=== PATIENT | male | born 1930 | race Caucasian/White ===

== ENCOUNTER 2017-02-11 15:46 | Emergency (ER) | payer MEDICARE, BC ==
--- NOTE | 2017-02-11 17:23 | RAD ---
LEFT RIBS: 02/11/17 Three views. HISTORY: Fell with injury to left ribs. No evidence of left rib fracture identified. IMPRESSION: No evidence of left rib fracture. POS: [facility]
== END 2017-02-11 17:12 | disposition home or self-care (01) ==
LOC: SCSER 15:46
DX: S20.212A Contusion of left front wall of thorax, initial encounter (principal); E78.5 Hyperlipidemia, unspecified; E11.40 Type 2 diabetes mellitus with diabetic neuropathy, unspecified; I25.2 Old myocardial infarction; K21.9 Gastro-esophageal reflux disease without esophagitis; I10 Essential (primary) hypertension; W01.0XXA Fall on same level from slipping, tripping and stumbling without subsequent striking against object, initial encounter
CPT/HCPCS: 93005

== ENCOUNTER 2020-08-01 14:27 | Outpatient (CLI) | payer MEDICARE, BC | END 2020-08-01 14:28 | disposition home or self-care (01) | LOC: BICRAD 14:27 | PROVIDERS: ATTEND Family Medicine | DX: M53.3 Sacrococcygeal disorders, not elsewhere classified (principal); M47.818 Spondylosis without myelopathy or radiculopathy, sacral and sacrococcygeal region | CPT/HCPCS: 72202 ==

== ENCOUNTER 2020-08-07 10:29 | Inpatient (IN) | payer MEDICARE, BC ==
[~2020-08-07 10:29] MED LIST: Iopamidol-370 76% 500 ML 1 ML ONE
[2020-08-07] MEDS ORDERED: Ondansetron PF 4 MG/2 ML Vial ONE (11:15)
[2020-08-07] MEDS ORDERED: Pantoprazole 40 MG VIAL ONE ×2 (11:15→11:28)
[2020-08-07 11:33] LABS: #Lymphocytes 0.9 thou/uL (1.20-3.40); #Monocytes 0.9 thou/uL (0.11-0.59); #Neutrophils 8.2 thou/uL (1.40-6.50); %Basophils 0.2 % (0.0-1.0); %Eosinophils 0.1 % (0.0-10.0); %Lymphocytes 9.2 % (21.0-51.0); %Monocytes 8.6 % (0.0-10.0); %Neutrophils 81.9 % (42.0-75.0); Hemoglobin 13.7 g/dL (14.0-18.0); Mean Corpuscular HGB CONC 33.5 g/dL (32.0-36.0); Mean Corpuscular Hemoglobin 36.1 pg (27.0-31.0); Mean Platelet Volume 6.9 fL (7.4-10.4); Platelet Count 211 thou/uL (130-400); RBC Distribution Width 12.1 % (11.5-14.5); Red Blood Cell (RBC) Count 3.79 mill/uL (4.70-6.10)
[2020-08-07 11:45] LABS: MDiff Complete? YES; Macrocytosis SLIGHT = 6-15 cells (100X) (0-5/hpf); Platelet Morphology Comment Appears Adequate
[2020-08-07 11:58] LABS: ALT (SGPT) 17 U/L (8-55); AST (SGOT) 19 U/L (5-34); Albumin 4.2 g/dL (3.4-4.8); Alkaline Phosphatase 50 U/L (40-110); Anion Gap 12 mmol/L (10-20); BUN (Urea Nitrogen) 21 mg/dL (8.4-25.7); Bilirubin, Total 0.8 mg/dL (0.2-1.2); Calc. Creatinine Clearance 0 mL/min (70-130); Calcium 9.5 mg/dL (7.8-10.44); Carbon Dioxide 27 mmol/L (23-31); Chloride 104 mmol/L (98-107); Globulin 2.5 g/dL (2.4-3.5); Glucose 121 mg/dL (83-110); Lipase 7 U/L (8-78); Potassium 4.1 mmol/L (3.5-5.1); Protein, Total 6.7 g/dL (5.8-8.1); Sodium 139 mmol/L (136-145)
[2020-08-07] MEDS ORDERED: Calcium Carbonate 500 MG ChewTAB PO PRN (12:56)
[2020-08-07] MEDS ORDERED: Ondansetron PF 4 MG/2 ML Vial IVP PRN (12:56)
[2020-08-07] MEDS ORDERED: Ondansetron ODT 4 MG TAB PO PRN (12:56)
[2020-08-07] MEDS ORDERED: Acetaminophen 650 MG Suppository PR PRN (13:00)
[2020-08-07] MEDS ORDERED: Pantoprazole 80 MG in Sodium Chloride 0.9% 100 ML IVPB SCH (13:15)
[2020-08-07 13:26] LABS: Iron 61 ug/dL (65-175); Iron Binding Capacity, Total 354 mcg/dL (261-462); Magnesium 2.1 mg/dL (1.6-2.6); Phosphorus 2.3 mg/dL (2.3-4.7)
[2020-08-07] MEDS ORDERED: Benzocaine 20% Spray 60 ML CAN ONE (13:37)
[2020-08-07] MEDS ORDERED: Morphine 2 MG/ML VIAL SLOW IVP PRN (13:43)
[2020-08-07] MEDS ORDERED: traMADol HCl 50 MG TAB PO PRN (14:48)
[2020-08-07] MEDS ORDERED: Acetaminophen 325 MG TAB PO PRN (14:49)
[2020-08-07] MEDS ORDERED: Labetalol HCl 100 MG/20 ML VIAL SLOW IVP PRN (14:50)
[2020-08-07] MEDS ORDERED: Carbidopa/Levodopa 25-100 mg Tablet PO SCH (15:00)
[2020-08-07 15:31] VITALS: BMI 27.2
[2020-08-07] MEDS: Sodium Chloride 0.9% 1,000 ML IV SCH ×2 (15:35→21:27)
[2020-08-07] MEDS: Carbidopa/Levodopa 25-100 mg Tablet PO SCH ×2 (16:48→21:27)
[2020-08-07 18:09] LABS: Hemoglobin 13.3 g/dL (14.0-18.0); Platelet Count 180 thou/uL (130-400)
[2020-08-07] MEDS: Metoprolol Tartrate 5 MG/5 ML VIAL IVP SCH (21:24)
[2020-08-07] MEDS: Nitroglycerin 2% Ointment 1 INCH/1 GM Packet TOP SCH (21:27)
[2020-08-07 21:58] LABS: SARS-CoV-2 IgG Ab Non-Reactive (NonReactive); SARS-CoV-2 IgG Index 0.02 S/CO (< 1.40)
[2020-08-08] MEDS ORDERED: Metoprolol Tartrate 5 MG/5 ML VIAL ONE (00:21)
[2020-08-08] MEDS: Metoprolol Tartrate 5 MG/5 ML VIAL IVP SCH ×5 (00:26→23:13)
[2020-08-08] MEDS: Sodium Chloride 0.9% 1,000 ML IV SCH ×4 (04:45→23:14)
[2020-08-08] MEDS: Nitroglycerin 2% Ointment 1 INCH/1 GM Packet TOP SCH ×3 (06:29→21:08)
[2020-08-08] MEDS ORDERED: MD-Gastroview 120 ML BOT ONE (10:11)
[2020-08-08] MEDS ORDERED: Ondansetron PF 4 MG/2 ML Vial IVP PRN (12:11)
[2020-08-08] MEDS ORDERED: Acetaminophen 650 MG Suppository PR PRN (12:13)
[2020-08-08] MEDS ORDERED: Labetalol HCl 100 MG/20 ML VIAL SLOW IVP PRN (12:13)
[2020-08-08] MEDS ORDERED: Ondansetron ODT 4 MG TAB PO PRN (12:15)
[2020-08-08] MEDS ORDERED: Pantoprazole 40 MG VIAL IVP SCH ×3 (12:15→21:00)
[2020-08-08] MEDS: Carbidopa/Levodopa 25-100 mg Tablet PO SCH ×3 (12:39→21:06)
[2020-08-08 14:32] LABS: Anion Gap 13 mmol/L (10-20); BUN (Urea Nitrogen) 22 mg/dL (8.4-25.7); Calc. Creatinine Clearance 66 mL/min (70-130); Calcium 9.3 mg/dL (7.8-10.44); Carbon Dioxide 22 mmol/L (23-31); Chloride 113 mmol/L (98-107); Glucose 99 mg/dL (83-110); Potassium 3.8 mmol/L (3.5-5.1); Sodium 144 mmol/L (136-145)
[2020-08-08] MEDS ORDERED: Nitroglycerin 4.9 GM Bottle SL PRN (14:41)
[2020-08-08] MEDS ORDERED: Ipratropium Bromide 0.06% Nasal Inhaler 15ml EA NARE PRN (14:41)
[2020-08-08] MEDS ORDERED: Carbidopa/Levodopa 25-100 mg Tablet PO SCH (15:00)
[2020-08-08] MEDS ORDERED: Montelukast Sodium 10 mg Tablet PO SCH (15:00)
[2020-08-08] MEDS ORDERED: Acetaminophen 500 MG TAB PO PRN (15:42)
[2020-08-08] MEDS ORDERED: Nystatin Powder 15 GM BOT TOP PRN (17:38)
[2020-08-08] MEDS: Calcium Carbonate 600 MG TAB PO SCH (21:06)
[2020-08-08] MEDS: Aspirin Chewable 81 MG TAB PO SCH (21:06)
[2020-08-08] MEDS: Atorvastatin Calcium 10 MG TAB PO SCH (21:06)
[2020-08-08] MEDS: Gabapentin 400 MG CAP PO SCH (21:06)
[2020-08-08] MEDS: Potassium Chloride 10 MEQ TAB PO SCH (21:06)
[2020-08-08] MEDS: traMADol HCl 50 MG TAB PO SCH (21:07)
[2020-08-09 04:28] LABS: Hemoglobin 11.5 g/dL (14.0-18.0); Mean Corpuscular HGB CONC 34.4 g/dL (32.0-36.0); Red Blood Cell (RBC) Count 3.11 mill/uL (4.70-6.10); White Blood Cell (WBC) Count 7.9 thou/uL (4.8-10.8)
[2020-08-09 04:35] LABS: Anion Gap 12 mmol/L (10-20); BUN (Urea Nitrogen) 22 mg/dL (8.4-25.7); Calc. Creatinine Clearance 75 mL/min (70-130); Calcium 8.2 mg/dL (7.8-10.44); Carbon Dioxide 18 mmol/L (23-31); Chloride 113 mmol/L (98-107); Glucose 84 mg/dL (83-110); Potassium 3.7 mmol/L (3.5-5.1); Sodium 139 mmol/L (136-145)
[2020-08-09 04:47] LABS: #Basophils 0.1 thou/uL (0.0-0.2); #Lymphocytes 1.6 thou/uL (1.20-3.40); #Monocytes 1.1 thou/uL (0.11-0.59); #Neutrophils 5.1 thou/uL (1.40-6.50); %Basophils 0.7 % (0.0-1.0); %Eosinophils 0.5 % (0.0-10.0); %Lymphocytes 20.1 % (21.0-51.0); %Neutrophils 64.7 % (42.0-75.0); Platelet Count 99 thou/uL (130-400); Platelet Morphology Comment Appears Decreased
[2020-08-09] MEDS: Metoprolol Tartrate 5 MG/5 ML VIAL IVP SCH (06:08)
[2020-08-09] MEDS: Nitroglycerin 2% Ointment 1 INCH/1 GM Packet TOP SCH (06:08)
[2020-08-09] MEDS: Polyethylene Glycol 3350 17 GM Packet PO SCH (08:16)
[2020-08-09] MEDS: Torsemide 10 MG TAB PO SCH (08:17)
[2020-08-09] MEDS: Gabapentin 400 MG CAP PO SCH ×3 (08:17→22:27)
[2020-08-09] MEDS: Citrucel 500 MG TAB PO SCH (08:17)
[2020-08-09] MEDS: Calcium Carbonate 600 MG TAB PO SCH ×2 (08:18→22:26)
[2020-08-09] MEDS: Sodium Chloride 0.9% 1,000 ML IV SCH (08:19)
[2020-08-09] MEDS: Potassium Chloride 10 MEQ TAB PO SCH ×2 (08:19→22:26)
[2020-08-09] MEDS: Carbidopa/Levodopa 25-100 mg Tablet PO SCH ×3 (08:19→22:27)
[2020-08-09] MEDS: traMADol HCl 50 MG TAB PO SCH ×2 (08:19→22:27)
[2020-08-09] MEDS: Multivit, Therapeutic 1 TAB PO SCH (08:19)
[2020-08-09] MEDS ORDERED: FLAXSEED OIL 1000 MG PO SCH (09:00)
[2020-08-09] MEDS: Montelukast Sodium 10 mg Tablet PO SCH (11:45)
[2020-08-09] MEDS: Carvedilol 3.125 MG TAB PO SCH (16:48)
[2020-08-09] MEDS ORDERED: Carvedilol 3.125 MG TAB PO SCH (17:00)
[2020-08-09] MEDS ORDERED: Tamsulosin HCl 0.4 MG CAP PO SCH (21:00)
[2020-08-09] MEDS: Aspirin Chewable 81 MG TAB PO SCH (22:26)
[2020-08-09] MEDS: Atorvastatin Calcium 10 MG TAB PO SCH (22:27)
[2020-08-10 04:49] LABS: #Eosinphils 0.1 thou/uL (0.0-0.7); #Lymphocytes 1.1 thou/uL (1.20-3.40); #Monocytes 0.8 thou/uL (0.11-0.59); #Neutrophils 4.1 thou/uL (1.40-6.50); %Basophils 0.3 % (0.0-1.0); %Eosinophils 1.8 % (0.0-10.0); %Lymphocytes 18.6 % (21.0-51.0); %Monocytes 12.7 % (0.0-10.0); %Neutrophils 66.6 % (42.0-75.0); Hemoglobin 11.1 g/dL (14.0-18.0); Mean Corpuscular HGB CONC 34.2 g/dL (32.0-36.0); Mean Platelet Volume 6.9 fL (7.4-10.4); Platelet Count 147 thou/uL (130-400); RBC Distribution Width 12.1 % (11.5-14.5); White Blood Cell (WBC) Count 6.1 thou/uL (4.8-10.8)
[2020-08-10 05:30] LABS: Anion Gap 12 mmol/L (10-20); BUN (Urea Nitrogen) 25 mg/dL (8.4-25.7); Calc. Creatinine Clearance 62 mL/min (70-130); Calcium 8.6 mg/dL (7.8-10.44); Carbon Dioxide 22 mmol/L (23-31); Chloride 110 mmol/L (98-107); Glucose 103 mg/dL (83-110); Potassium 3.7 mmol/L (3.5-5.1); Sodium 140 mmol/L (136-145)
[2020-08-10] MEDS: Potassium Chloride 10 MEQ TAB PO SCH (10:19)
[2020-08-10] MEDS: Gabapentin 400 MG CAP PO SCH ×2 (10:19→13:05)
[2020-08-10] MEDS: Calcium Carbonate 600 MG TAB PO SCH (10:21)
[2020-08-10] MEDS: Carvedilol 3.125 MG TAB PO SCH (10:22)
[2020-08-10] MEDS: Carbidopa/Levodopa 25-100 mg Tablet PO SCH (10:23)
[2020-08-10] MEDS: traMADol HCl 50 MG TAB PO SCH (10:23)
[2020-08-10] MEDS: Polyethylene Glycol 3350 17 GM Packet PO SCH (10:24)
[2020-08-10] MEDS: Multivit, Therapeutic 1 TAB PO SCH (10:24)
[2020-08-10] MEDS: Citrucel 500 MG TAB PO SCH (10:24)
[2020-08-10] MEDS: Torsemide 10 MG TAB PO SCH (13:04)
[2020-08-10] MEDS: Montelukast Sodium 10 mg Tablet PO SCH (13:05)
[2020-08-10 13:08] VITALS: BP 104/54; TEMP 98.1
== END 2020-08-10 13:53 | disposition home or self-care (01) | DRG 378 ==
LOC: ERS 10:29 → T4-B 12:59 → UNDODISIN 18:00 → 2NO 19:53
PROVIDERS: ADMIT Internal Medicine; ATTEND Family Medicine
PROC: 0D9670Z Drainage of Stomach with Drainage Device, Via Natural or Artificial Opening (ICD-10-PCS; principal; 2020-08-07)
DX: K57.31 Diverticulosis of large intestine without perforation or abscess with bleeding (principal); K56.600 Partial intestinal obstruction, unspecified as to cause; I50.42 Chronic combined systolic (congestive) and diastolic (congestive) heart failure; Z20.822 Contact with and (suspected) exposure to COVID-19; I25.10 Atherosclerotic heart disease of native coronary artery without angina pectoris; G20 Parkinson's disease; K21.9 Gastro-esophageal reflux disease without esophagitis; D64.9 Anemia, unspecified; E11.42 Type 2 diabetes mellitus with diabetic polyneuropathy; E78.5 Hyperlipidemia, unspecified; E78.00 Pure hypercholesterolemia, unspecified; M25.552 Pain in left hip; G89.29 Other chronic pain; N40.0 Benign prostatic hyperplasia without lower urinary tract symptoms; I08.3 Combined rheumatic disorders of mitral, aortic and tricuspid valves; F41.9 Anxiety disorder, unspecified; I11.0 Hypertensive heart disease with heart failure; I25.5 Ischemic cardiomyopathy; D69.6 Thrombocytopenia, unspecified; I25.2 Old myocardial infarction; Z88.8 Allergy status to other drugs, medicaments and biological substances; Z91.040 Latex allergy status; Z79.899 Other long term (current) drug therapy; Z79.82 Long term (current) use of aspirin; Z79.02 Long term (current) use of antithrombotics/antiplatelets; Z82.49 Family history of ischemic heart disease and other diseases of the circulatory system
CPT/HCPCS: 36415; 36416; 74018; 74177; 74250; 80048; 80053; 82274; 82728; 83540; 83550; 83690; 83735; 84100; 84484; 85025; 86769; 86850; 86900; 86901; 93005; 96374; 96375; C9113; J2405; J3490; Q9963; Q9967